=== PATIENT | female | born 1960 | race Caucasian/White ===

== ENCOUNTER → 2018-11-10 11:07 | Outpatient (CLI) | payer OTHER, SELFPAY ==
[2018-11-10 10:47] VITALS: BMI 25.3
[2018-11-10 12:47] LABS: T4 Free Direct 1.04 ng/dL (0.76-1.46); Thyroid Stim Hormone (TSH) 2.22 uIU/mL (0.358-3.74)
== END ==
PROVIDERS: PCP Family Medicine; Visit Provider Family Medicine
DX: E78.5 Hyperlipidemia, unspecified (principal)
CPT/HCPCS: 36415; 84439; 84443

== ENCOUNTER → 2018-11-30 13:29 | Outpatient (CLI) | payer OTHER, SELFPAY ==
[2018-11-10 10:47] VITALS: BMI 25.3
--- NOTE | 2018-11-30 13:47 | EKG12_ITS ---
Test Reason : CHEST TIGHTNESS Blood Pressure : / mmHG Vent. Rate : 064 BPM Atrial Rate : 064 BPM P-R Int : 136 ms QRS Dur : 072 ms QT Int : 430 ms P-R-T Axes : 062 -05 050 degrees QTc Int : 443 ms Normal sinus rhythm Septal infarct , age undetermined Abnormal ECG Confirmed by TESSA PERRIN ([id number]), editor farm journal JASWINDER MCLAUGHLIN ([id number]) on 12/01/2018 11:43:23 AM Referred By: Bernabe Lundberg Confirmed By:JULIO PERRIN
[2018-11-30 15:13] LABS: Absolute Neutrophil Count 4.6 X10^3/uL (2.0-7.7); Basophil# 0.03 X10^3/uL; Basophil% 0.4 % (0-1); Eosinophil# 0.11 X10^3/uL; Eosinophils% 1.5 % (0-5); Hematocrit 40.6 % (37-47); Hemoglobin 13.2 g/dl (12.0-15.0); Lymphocyte % 29.5 % (19-41); Mean Corp Hgb Conc 32.5 g/gl (32-36); Mean Corpuscular Hgb 29.5 pg (27.0-32.0); Mean Corpuscular Volume 90.6 fL (81-99); Mean Platelet Vol. 11.1 fl (6.2-12.0); Monocyte% 6.7 % (0-10); Neutrophil # 4.61 X10^3/uL (2.7-7.7); Neutrophil % 61.8 % (47-70); Platelet Count 223 K/mm3 (150-450); RBC Distribution Width CV 12.8 % (11.6-14.6); RBC Distribution Width SD 42.1 fl (35.1-43.9); Red Blood Count 4.48 M/mm3 (4.2-5.4); White Blood Count 7.5 K/mm3 (4.4-11.0)
[2018-11-30 15:19] LABS: POSITIVE COUNT NO; POSITIVE DIFFERENTIAL NO; POSITIVE MORPHOLOGY NO
[2018-11-30 15:30] LABS: Anion Gap 1 (5-15); BUN 9 mg/dL (7-18); BUN/Creat Ratio 10.5 RATIO (10-20); Calcium,Total 8.8 mg/dL (8.5-10.1); Chloride 106 mmol/L (98-107); Creatinine, Serum 0.86 mg/dL (0.55-1.02); EST Glomerular Filtration Rate 72 mL/min (>60); Est Glom Filt Rate - Afr Amer 87 mL/min (>60); Glucose 82 mg/dL (74-106); Potassium 3.8 mmol/L (3.5-5.1); Sodium Level 139 mmol/L (136-145)
== END ==
PROVIDERS: Family Provider Family Medicine; PCP Family Medicine; Referring Provider Family Medicine; Visit Provider Family Medicine
DX: R07.89 Other chest pain (principal)
CPT/HCPCS: 36415; 80048; 85025; 93005

== ENCOUNTER → 2018-12-20 13:22 | Outpatient (CLI) | payer SELFPAY ==
[2018-11-10 10:47] VITALS: BMI 25.3
--- NOTE | 2018-12-20 13:27 | CT_ITS ---
STUDY: CT CHEST WITHOUT CONTRAST REASON FOR EXAM: Female, 58 years old. Radiological over read study. RADIATION DOSAGE (If Supplied By Facility): CTDIvol = ( 12.19 ) mGy, DLP = ( 219.42 ) mGycm TECHNIQUE: Transaxial imaging was performed without the administration of intravenous contrast material. Individualized dose optimization techniques were used for this CT. COMPARISON: None. FINDINGS: Small bilateral axillary lymph nodes. Minimal increased linear markings at the lung bases suggestive of scarring. There is no demonstrated pleural abnormality. Normal heart and pericardium. There are multiple small lymph nodes within the mediastinum, which are normal in size and morphology most compatible with reactive lymph hyperplasia. Normal hilar regions. Normal unenhanced pulmonary arteries. Normal aorta arch and descending thoracic aorta. Normal osseous structures. Moderate sized hiatal hernia. 5 mm cyst in the anterior superior aspect of the right lobe of the liver. CT/Limited Chest CT w/CCTA IMPRESSION: No acute abnormality is seen. Electronically Signed: Yony Hidalgo, at 13:59 EDT , Service support ,
[2018-12-20 13:40] VITALS: BP 120/78; PULSE 57; RESP 16; O2SAT 96; BMI 25.2
--- NOTE | 2018-12-20 16:42 | CA.SCORE ---
Calcium Scoring Date of Study:: 12/20/18 Coronary Calcium Scoring: High-resolution Computed Tomographic imaging of the chest was performed on [12/20/2018], with particular attention paid to the coronary arteries. Images from the examination were analyzed for the presence and extent of coronary artery calcification , using coronary calcium quantification software. The patient tolerated the procedure well and there were no complications. The results of the coronary calcification analysis are provided below. - Findings Left Main (LM): 0 Left Anterior Descending (LAD): 0 Left Circumflex (LCX): 0 Right Coronary Artery (RCA): 0 Total Agatston Score: 0 Percentile Rankin - Conclusion Calcium Scoring Interpretation: Calcium Score Interpretation 0 No identifiable atherosclerotic plaque. Very low cardiovascular disease risk. <5% chance of presence coronary artery disease A Negative Examination 1-10 Minimal Plaque burden. Significant coronary artery disease very unlikely. 11-100 Mild plaque burden. Likely mild or minimal coronary atherosclerosis. 101-400 Moderate plaque burden Moderate non-obstructive coronary artery disease highly likely. Over 400 Extensive plaque burden. High likelihood of at least one significant coronary stenosis (>50% diameter) Calcium Score: 0 Negative Examination - No significant atherosclerotic plaquing noted. For evaluation of cardiac risk should include an assessment of all conventional risk factors and the scores and percentile rankings reported herein should be evaluated in this context.
== END ==
PROVIDERS: Family Provider Family Medicine; PCP Family Medicine; Referring Provider Family Medicine; Visit Provider Family Medicine
DX: R07.89 Other chest pain (principal)
CPT/HCPCS: 75571; 76380

== ENCOUNTER → 2019-03-22 14:06 | Outpatient (CLI) | payer OTHER, SELFPAY ==
[2019-03-22 13:31] VITALS: BMI 25.4
--- NOTE | 2019-03-22 14:08 | RAD_ITS ---
STUDY: X-RAY CHEST REASON FOR EXAM: Female, 58 years old. Cough TECHNIQUE: Frontal and lateral views of the chest COMPARISON: None. FINDINGS: The lungs are clear. There are no pleural effusions. There is no pneumothorax. The heart is normal in size. The visualized osseous structures are within normal limits. RAD/Chest PA and Lateral IMPRESSION: No acute thoracic pathology. Electronically Signed: Tyler Perdomo, at 19:36 EDT Tel , Service support ,
== END ==
PROVIDERS: Family Provider Family Medicine; PCP Family Medicine; Referring Provider Family Medicine; Visit Provider Family Medicine
DX: R05 Cough (principal)
CPT/HCPCS: 71046

== ENCOUNTER → 2019-11-22 11:02 | Outpatient (CLI) | payer OTHER, SELFPAY ==
[2019-10-31 09:23] VITALS: BMI 25.4
[2019-11-22 13:09] LABS: Cholesterol 236 mg/dL (200); High Density Lipoprotein 46 mg/dL; Triglycerides 144 mg/dL; Very Low Density Lipoprotein 29 mg/dL (5-40)
== END ==
PROVIDERS: PCP Family Medicine; Referring Provider Family Medicine; Visit Provider Family Medicine
DX: E78.5 Hyperlipidemia, unspecified (principal)
CPT/HCPCS: 36415; 80061

== ENCOUNTER → 2020-08-14 14:59 | Outpatient (CLI) | payer OTHER, SELFPAY ==
[2020-08-14 14:33] VITALS: BMI 25.7
[2020-08-14 17:04] LABS: ALB/GLOB Ratio 1.2 RATIO (0.9-2.4); AST(SGOT) 28 U/L (15-37); Alanine Aminotransfer ALT/SGPT 33 U/L (13-56); Albumin, Serum 4.3 g/dL (3.2-5.0); Alkaline Phosphatase 64 U/L (45-117); Anion Gap 5 (5-15); BUN 10 mg/dL (7-18); BUN/Creat Ratio 10.8 RATIO (10-20); Chloride 104 mmol/L (98-107); Cholesterol 177 mg/dL (200); Creatinine, Serum 0.93 mg/dL (0.55-1.02); EST Glomerular Filtration Rate 66 mL/min (>60); Est Glom Filt Rate - Afr Amer 79 mL/min (>60); Globulin 3.6 g/dL (2.2-4.2); Glucose 83 mg/dL (74-106); High Density Lipoprotein 63 mg/dL; Potassium 3.7 mmol/L (3.5-5.1); Protein, Total 7.9 g/dL (6.4-8.2); Sodium Level 139 mmol/L (136-145); Triglycerides 136 mg/dL; Very Low Density Lipoprotein 27 mg/dL (5-40)
== END ==
PROVIDERS: PCP Family Medicine; Referring Provider Family Medicine; Visit Provider Family Medicine
DX: E78.5 Hyperlipidemia, unspecified (principal)
CPT/HCPCS: 36415; 80053; 80061

== ENCOUNTER → 2020-10-16 12:02 | Outpatient (CLI) | payer OTHER, SELFPAY ==
[2020-10-16 10:37] VITALS: BMI 25.7
--- NOTE | 2020-10-16 12:07 | RAD_ITS ---
STUDY: X-RAY - RIGHT FOOT CLINICAL: Dorsal foot pain radiating into leg, injury 2 years ago. TECHNIQUE: 3 view(s) of the foot. COMPARISON: None. FINDINGS: Normal talus, calcaneus, and tarsal bones. There is a type II accessory navicular. Normal visualized subtalar, talonavicular, calcaneocuboid, tarsal and tarsometatarsal articulations. There is mild deformity at the base of the fifth metatarsal, possibly from remote healed fracture. Normal metatarsophalangeal joint of the great toe. Normal tibial and fibular sesamoid bones. Normal interphalangeal joint of the great toe. Normal phalanges of the great toe. Normal second through fifth metatarsophalangeal joints. Normal interphalangeal joints and phalanges of the lesser toes. The soft tissue structures are unremarkable. RAD/Foot min 3 Views IMPRESSION: Mild deformity of the base of the fifth metatarsal, possibly from remote healed fracture. Otherwise, unremarkable x-ray examination of the right foot. Electronically Signed: Bryn Prince MD at 14:47 EDT Tel , Service support ,
== END ==
PROVIDERS: PCP Family Medicine; Referring Provider Nurse Practitioner Family; Visit Provider Nurse Practitioner Family
DX: M79.671 Pain in right foot (principal)
CPT/HCPCS: 73630

== ENCOUNTER 2021-08-28 14:05 | Outpatient (CLI) | payer OTHER, SELFPAY ==
[2021-08-28 15:20] LABS: ALB/GLOB Ratio 1.4 RATIO (0.9-2.4); AST(SGOT) 29 U/L (15-37); Alanine Aminotransfer ALT/SGPT 31 U/L (13-56); Albumin, Serum 4.4 g/dL (3.2-5.0); Alkaline Phosphatase 50 U/L (45-117); Anion Gap 4 (5-15); BUN 12 mg/dL (7-18); BUN/Creat Ratio 12.9 RATIO (10-20); Calcium,Total 9.2 mg/dL (8.5-10.1); Chloride 105 mmol/L (98-107); Cholesterol 202 mg/dL (200); Creatinine, Serum 0.93 mg/dL (0.55-1.02); EST Glomerular Filtration Rate 65 mL/min (>60); Est Glom Filt Rate - Afr Amer 79 mL/min (>60); Globulin 3.2 g/dL (2.2-4.2); Glucose 92 mg/dL (74-106); High Density Lipoprotein 64 mg/dL; Protein, Total 7.6 g/dL (6.4-8.2); Sodium Level 139 mmol/L (136-145); Triglycerides 112 mg/dL; Very Low Density Lipoprotein 22 mg/dL (5-40)
== END 2021-08-28 23:59 | disposition home or self-care (01) ==
LOC: BIMLAB 14:06
PROVIDERS: PCP Family Medicine; Referring Provider Family Medicine; Visit Provider Family Medicine
DX: E78.5 Hyperlipidemia, unspecified (principal)
CPT/HCPCS: 36415; 80053; 80061

== ENCOUNTER → 2021-12-12 | Outpatient (CLI) | payer OTHER, SELFPAY ==
--- NOTE | 2021-12-12 11:57 | RAD_ITS ---
EXAM: XR CHEST, 2 VIEWS CLINICAL INDICATION: left chest pain, sob TECHNIQUE: Frontal and lateral views of the chest. This report was created using [employer] report generation technology. COMPARISON: 03/22/2019 FINDINGS: LUNGS AND PLEURAL SPACES: Unremarkable. No consolidation or edema. No pneumothorax. No effusion. HEART: Unremarkable. Cardiac silhouette not enlarged. MEDIASTINUM: There is a small hiatal hernia. BONES/JOINTS: Unremarkable. SOFT TISSUES: Unremarkable. RAD/Chest PA and Lateral IMPRESSION: No acute findings in the chest. Electronically Signed: Bryson Pierce MD at 3:08 EDT ,
[2021-12-12 12:34] LABS: Absolute Lymphocyte Count 1.77 X10^3/uL (0.83-4.51); Absolute Neutrophil Count 3.7 X10^3/uL (2.0-7.7); Basophil# 0.04 X10^3/uL; Basophil% 0.7 % (0-1); Eosinophil# 0.14 X10^3/uL; Eosinophils% 2.3 % (0-5); Hematocrit 40.6 % (37-47); Hemoglobin 13.1 g/dL (12.0-15.0); Lymphocyte # 1.77 X10^3/ul (0.83-4.51); Mean Corp Hgb Conc 32.3 g/dL (32-36); Mean Corpuscular Hgb 29.9 pg (27.0-32.0); Mean Corpuscular Volume 92.7 fL (81-99); Mean Platelet Vol. 11.1 fl (6.2-12.0); Monocyte% 8.2 % (0-10); NRBC Flagged by Analyzer 0 % (0-5); Neutrophil # 3.65 X10^3/uL (2.7-7.7); Neutrophil % 59.6 % (47-70); Platelet Count 199 K/mm3 (150-450); RBC Distribution Width CV 12.2 % (11.6-14.6); RBC Distribution Width SD 41.6 fl (35.1-43.9); Red Blood Count 4.38 M/mm3 (4.2-5.4); White Blood Count 6.1 K/mm3 (4.4-11.0)
[2021-12-12 12:47] LABS: Troponin-I HS 20 pg/mL (3.0-54.0)
== END | disposition home or self-care (01) ==
PROVIDERS: PCP Family Medicine; Referring Provider Physician Assistant; Visit Provider Physician Assistant
DX: R06.02 Shortness of breath (principal); R07.9 Chest pain, unspecified
CPT/HCPCS: 36415; 71046; 84484; 85025

== ENCOUNTER → 2022-03-31 | Outpatient (CLI) | payer OTHER, SELFPAY ==
--- NOTE | 2022-03-31 13:58 | US_ITS ---
STUDY: ULTRASOUND BREAST - RIGHT REASON FOR EXAM: Female, 61 years old. Abnormal ultrasound findings from outside examination. TECHNIQUE: Axial and longitudinal images of the RIGHT breast were performed with a high resolution ultrasound transducer. # OF IMAGES: 21 COMPARISON: Comparison is made with prior examination of 09/19/2021. FINDINGS: RIGHT Breast: There is a 4.8 mm x 5.4 mm x 3 mm cyst at the 7 o''clock position breast at 3 cm from the nipple. IMPRESSION: 4.8 mm x 5.4 mm x 3 mm cyst at the 7 o''clock position of the breast at 3 cm from the nipple. Septations are seen within it. A repeat sonogram in 6 months is recommended. ASSESSMENT CATEGORY: BIRADS Category 3: Probably Benign - Short-Interval Follow-up Suggested. A letter regarding these results will be sent to the patient by the facility within 30 days. Electronically Signed: Yony Hidalgo MD at 13:24 EDT , STUDY: ULTRASOUND BREAST - LEFT REASON FOR EXAM: Female, 61 years old. Follow-up for abnormal sonogram. TECHNIQUE: Axial and longitudinal images of the LEFT breast were performed with a high resolution ultrasound transducer. # OF IMAGES: 21 COMPARISON: Comparison is made with prior outside ultrasound examination dated 09/19/2021. FINDINGS: LEFT Breast: There is a 3.8 mm x 3.1 mm x 2.7 mm cyst at the 3 o''clock position of the breast at 1 cm from the nipple. US/Breast Limited Unilateral IMPRESSION: Stable examination. ASSESSMENT CATEGORY: BIRADS Category 2: Benign. A letter regarding these results will be sent to the patient by the facility within 30 days. Electronically Signed: Yony Hidalgo MD at 13:29 EDT ,
== END | disposition home or self-care (01) ==
PROVIDERS: PCP Family Medicine; Visit Provider Family Medicine
DX: N60.09 Solitary cyst of unspecified breast (principal)
CPT/HCPCS: 76642

== ENCOUNTER → 2022-08-20 | Outpatient (CLI) | payer OTHER, SELFPAY ==
[2022-08-20 17:34] LABS: Anion Gap 4 (5-15); BUN 19 mg/dL (7-18); BUN/Creat Ratio 21.3 RATIO (10-20); Calcium,Total 9.1 mg/dL (8.5-10.1); Chloride 106 mmol/L (98-107); Cholesterol 175 mg/dL (200); Creatinine, Serum 0.89 mg/dL (0.55-1.02); EST Glomerular Filtration Rate 68 mL/min (>60); Est Glom Filt Rate - Afr Amer 82 mL/min (>60); Glucose 96 mg/dL (74-106); High Density Lipoprotein 54 mg/dL; Potassium 4.1 mmol/L (3.5-5.1); Sodium Level 142 mmol/L (136-145); Triglycerides 202 mg/dL; Very Low Density Lipoprotein 40 mg/dL (5-40)
== END | disposition home or self-care (01) ==
LOC: BIMLAB 16:08
PROVIDERS: PCP Family Medicine; Referring Provider Family Medicine; Visit Provider Family Medicine
DX: R05.3 Chronic cough (principal); E78.5 Hyperlipidemia, unspecified
CPT/HCPCS: 36415; 80048; 80061

== ENCOUNTER → 2023-07-20 | Outpatient (CLI) | payer OTHER, SELFPAY ==
--- NOTE | 2023-07-20 14:45 | RAD_ITS ---
EXAM: XR CHEST, 2 VIEWS CLINICAL INDICATION: left sided chest pain TECHNIQUE: Frontal and lateral views of the chest. COMPARISON: 12/12/2021 FINDINGS: LUNGS AND PLEURAL SPACES: Unremarkable. No consolidation or edema. No pneumothorax. No effusion. HEART: Unremarkable. Cardiac silhouette not enlarged. MEDIASTINUM: Small hiatal hernia is present. BONES/JOINTS: Unremarkable. No acute fracture. SOFT TISSUES: Unremarkable. RAD/Chest PA and Lateral IMPRESSION: No acute findings in the chest. Electronically Signed: Bryson Pierce MD at 19:18 EST ,
--- OUTSIDE RECORDS SUMMARY | 2023-07-20 15:18 | XMS RPT_ITS | CCD ---
Author Name Unknown Address [address] [facility] [address] [place] [address] Organization [facility] Care Team Providers Care Release Specialist Name Role Phone Unavailable Primary Care Provider ESSIE Hayward Attending Unavailable MOLLY MENDOZA Attending Unavailable Allergies Allergy Classification Reported Allergen(s) Allergy Type Date of Onset Reaction(s) Facility (1 source) Aspirin; Translations: [ASPIRIN] Drug Allergy 08-24-2018 [facility] Repository (1 source) Pravastatin; Translations: [PRAVASTATIN] Drug Allergy 04-30-2023 [facility] Repository Medications Completed/Discontinued Medications Medication Drug Class(es) Dates Sig (Normalized) Sig (Original) methylPREDNISolone 4 mg oral tablet (1 source) Corticosteroid Start: 3 methylPREDNISolone (MEDROL, FAIZA,) 4 mg Dose-Pack Indications: Plant dermatitis Take by mouth per package instructions 21 tablet 0 02/23/2023 Active Problems Problem Classification Problem Date Documented Da te Episodic/Chronic Allergic reactions (2 sources) Contact dermatitis due to plants; Translations: [Unspecified contact dermatitis due to plants, except food] Onset: 02-23-2023 02-23-2023 Episodic Chronic obstructive pulmonary disease and bronchiectasis (1 source) Bronchitis, not specified as acute or chronic; Translations: [Bronchitis] Onset: 04-30-2023 Episodic Results Test Name Value Interpretation Reference Range Facil ity Vital Signs Date Time Vital Sign Value Performing Clinician Gloriai lithao 02-23-2023 10:56-0400 Body temperature 98.29 [degF] Essie Ricci MD Work Phone: [facility] 02-23-2023 10:56-0400 Body weight 70.76 kg Essie Ricci MD Work Phone: [facility] 02-23-2023 10:56-0400 Diastolic blood pressure 70 mm[Hg] Essie Ricci MD Work Phone: [facility] 02-23-2023 10:56-0400 Heart rate 65 /min Essie Ricci MD Work Phone: [facility] 02-23-2023 10:56-0400 Respiratory rate 16 /min Essie Ricci MD Work Phone: [facility] 02-23-2023 10:56-0400 SaO2% (BldA) [Mass fraction] 98 % Essie Ricci MD Work Phone: [facility] 02-23-2023 10:56-0400 Systolic blood pressure 148 mm[Hg] Essie Ricci MD Work Phone: [facility] Encounters Encounter Date Encounter Type Care Provider Facility Start: 04-30-2023 End: 04-30-2023 ambulatory MOLLY MENDOZA Facility:[id number] Start: 02-23-2023 End: 02-23-2023 ambulatory ESSIE RICCI Facility:[id number] Start: 02-23-2023 End: 02-23-2023 Office outpatient new 30 minutes Essie Ricci MD Work Phone: [facility] [place] Procedures Date Procedure Procedure Detail Performing Clinician Start: 09-17-2021 Mammography Essie diane MD Work Phone: Plan of Treatment Date Care Activity Detail Author Start: 04-28-2024 LIPID SCREEN LIPID SCREEN [facility] Start: 02-19-2023 Influenza vaccination INFLUENZA (#1) [facility] Start: 09-17-2022 Mammography MAMMOGRAM [facility] Start: 06-21-2022 DEPRESSION ASSESSMENT DEPRESSION ASS ESSMENT [facility] Start: 04-28-2022 DIABETES SCREEN DIABETES SCREEN [facility] Start: 2010 SHINGRIX VACCINE (1 of 2) SHINGRIX V ACCINE (1 of 2) [facility] Start: 2005 COLOGUARD (FIT-DNA) COLOGUARD (FIT-D NA) [facility] Start: 2005 Colonoscopy COLONOSCOPY [facility] Start: 2005 COLORECTAL CANCER SCREENING COLORECTAL CANCER SCREENING [facility] Start: [address] COLONOGRAPHY [facility] Start: 2005 FECAL OCCULT BLOOD FECAL OCCULT BLOO D [facility] Start: 2005 SIGMOIDOSCOPY SIGMOIDOSCOPY [facility] Start: 1990 HPV TESTING HPV TESTING [facility] Start: 1981 PAP TESTING PAP TESTING [facility] Start: 1979 Urine microalbumin profile DTAP,TDAP ,TD (1 - Tdap) [facility] Start: 1978 HEPATITIS C SCREENING HEPATITIS C SC REENING [facility] Start: 1978 HIV SCREENING HIV SCREENING [facility] Start: 02-07-1961 COVID-19 VACCINE (#1) COVID-19 VACCI NE (#1) [facility] Payers Date Payer Category Payer Private Health Insurance [employer] PPO [id number] 2022-Present [phone] [address] [place] [address] PPO [id number] 2022 Private Health Insurance [id number] Social History Date Type Detail Facility Tobacco smoking stat [facility] Tobacco smoking consumption unknown [facility] Start: 1960 Sex Assigned At Not on file [facility] Start: 02[facility]23-2023 [facility] Start: 02-23-2023 Tobacco use and exposure Smokeless t obacco non-user [facility] Start: 02-23-2023 History of Social function [facility] Start: 02-23-2023 Tobacco use panel [facility] Progress note 04-30-2023 Note Date & Type Note Facility 04-30-2023 Note HNO ID: [id number] Author: Molly Mendoza, DO Service: ? Author Type: Physician Type: Progress Notes Filed: 04/30/2023 12:25 PM Note Text: Juju Chapman is a 62 year old FEMALE who presents with Cough (Started about a week ago //Hx of bronchitis /) and GI Upset (Due to taking cough relief medication /) HPI History reviewed. No pertinent past medical history. There is no problem list on file for this patient. Current Outpatient Medications Medication Sig Dispense Refill rosuvastatin (CRESTOR) 5 mg tablet Take 5 mg by mouth daily at bedtime. amoxicillin (AMOXIL) 875 mg tablet Take 1 tablet by mouth two times a day for 10 days. 20 tablet 0 wfznvqfqqrklz-LE-nkurzisuanopo 4-30-650 mg/30 mL liqd Take 1 teaspoonful by mouth three times a day as needed for up to 10 days. 150 mL 0 methylPREDNISolone (MEDROL, FAIZA,) 4 mg Dose-Pack Take by mouth per package instructions (Patient not taking: Reported on 04/30/2023) 21 tablet 0 triamcinolone acetonide (KENALOG) 0.1 % ointment Apply as directed to affected area twice daily. (Patient not taking: Reported on 04/30/2023) 80 g 0 No current facility-administered medications for this visit. Social History Tobacco Use Smoking status: Never Smokeless tobacco: Never Vaping Use Vaping Use: Never used Substance Use Topics Alcohol use: Never Drug use: Never Alcohol Use: Never Tobacco Use: Never History reviewed. No pertinent family history. Review of Systems Constitutional: Positive for chills, fever and malaise/fatigue. HENT: Positive for congestion, sinus pain and sore throat. Respiratory: Positive for cough and sputum production. All other systems reviewed and are negative. BP 147/88[patient has been taking cough relief medication[ Pulse 66 Temp (Src) 97.9 (Temporal) Resp 17 Wt 156 lb (70.8kg) SpO2 97% Physical Exam Vitals and nursing note reviewed. Constitutional: Appearance: Normal appearance. HENT: Head: Normocephalic and atraumatic. Nose: Congestion and rhinorrhea present. Mouth/Throat: Pharynx: Posterior oropharyngeal erythema present. Eyes: Extraocular Movements: Extraocular movements intact. Pupils: Pupils are equal, round, and reactive to light. Cardiovascular: Rate and Rhythm: Normal rate and regular rhythm. Heart sounds: Normal heart sounds. Pulmonary: Effort: Pulmonary effort is normal. Breath sounds: Normal breath sounds. Abdominal: General: Bowel sounds are normal. Musculoskeletal: General: Normal range of motion. Cervical back: Normal range of motion. Skin: General: Skin is warm. Capillary Refill: Capillary refill takes 2 to 3 seconds. Neurological: General: No focal deficit present. Psychiatric: Mood and Affect: Mood normal. ASSESSMENT/PLAN: 1. Bronchitis - ICD9: 490, ICD10: J40 - AMOXICILLIN 875 MG TABLET - CHLORPHENIRAMINE 4 MG-DM 30 MG-ACETAMINOPHEN 650 MG/30 ML ORAL LIQUID Molly D [facility] Progress note 02-23-2023 Note Date & Type Note Facility 02-23-2023 Note HNO ID: [id number] Author: Essie Ricci MD Service: ? 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 Rash History reviewed. No pertinent past medical history. There is no problem list on file for this patient. Current Outpatient Medications Medication Sig Dispense Refill rosuvastatin (CRESTOR) 5 mg tablet Take 5 mg by mouth daily at bedtime. No current facility-administered medications for this visit. Social History Tobacco Use Smoking status: Never Smokeless tobacco: Never Alcohol Use: Not on file Tobacco Use: Never History reviewed. No pertinent family history. Review of Systems Constitutional: Negative. Respiratory: Negative. Skin: Positive for rash. BP 148/70 Pulse 65 Temp 98.3 Resp 16 Wt 156 lb (70.8kg) SpO2 98% Physical Exam Vitals reviewed. Constitutional: General: She is not in acute distress. Appearance: She is not ill-appearing or toxic-appearing. HENT: Nose: Nose normal. Mouth/Throat: Mouth: Mucous membranes are moist. Pharynx: Oropharynx is clear. Cardiovascular: Rate and Rhythm: Normal rate and regular rhythm. Heart sounds: Normal heart sounds. Pulmonary: Effort: Pulmonary effort is normal. Breath sounds: Normal breath sounds. Musculoskeletal: Cervical back: Normal range of motion and neck supple. Skin: Findings: Erythema and rash present. Comments: Scattered erythematous rash on extremities and trunk some areas of eczema-like rash. No blisters or pustules Neurological: Mental Status: She is alert. Explained to patient that this is most likely from something she has been exposed to while working on a fence. I explained to patient that [facility] has ran out of the cortisone injections so I cannot give her injection here today but I will prescribe her Medrol Dosepak and also steroid ointment to put on her rash. Patient understand and agreed ASSESSMENT/PLAN: 1. Plant dermatitis - ICD9: 692.6, ICD10: L25.5 - METHYLPREDNISOLONE 4 MG TABLETS IN A DOSE PACK - TRIAMCINOLONE ACETONIDE 0.1 % TOPICAL OINTMENT Benadryl, use steroid ointment as per direction F/u PCP for further urgent care Explained details Essie Ricci MD [facility] Instructions 02-23-2023 Patient Instructions Note Date & Type Note Facility 02-23-2023 Instructions Essie Ricci MD - 02/23/2023 11:13 AM EDT Benadryl, use steroid ointment as per direction F/u PCP for further urgent care Explained details documented in this encounter [facility] History of Present illness Narrative 02-23-2023 Essie Ricci MD - 02/23/2023 11:06 AM EDT Note Date & Type Note Facility 02-23-2023 History of Presen t illness Narrative Juju Chapman is a 62 year old FEMALE who presents with Rash (Red itchy rash scattered over body and face 3 day) 62 years old female present with rash over the body with itching for the last 3 days Stated that she was doing fencing at home has been exposed to poison oak most likely Itching has been persistent, she had similar symptoms in the past No respiratory symptoms. Rash History reviewed. No pertinent past medical history. There is no problem list on file for this patient. Current Outpatient Medications Medication Sig Dispense Refill rosuvastatin (CRESTOR) 5 mg tablet Take 5 mg by mouth daily at bedtime. No current facility-administered medications for this visit. Social History Tobacco Use Smoking status: Never Smokeless tobacco: Never Alcohol Use: Not on file Tobacco Use: Never History reviewed. No pertinent family history. Review of Systems Constitutional: Negative. Respiratory: Negative. Skin: Positive for rash. BP 148/70 Pulse 65 Temp 98.3 Resp 16 Wt 156 lb (70.8kg) SpO2 98% Physical Exam Vitals reviewed. Constitutional: General: She is not in acute distress. Appearance: She is not ill-appearing or toxic-appearing. HENT: Nose: Nose normal. Mouth/Throat: Mouth: Mucous membranes are moist. Pharynx: Oropharynx is clear. Cardiovascular: Rate and Rhythm: Normal rate and regular rhythm. Heart sounds: Normal heart sounds. Pulmonary: Effort: Pulmonary effort is normal. Breath sounds: Normal breath sounds. Musculoskeletal: Cervical back: Normal range of motion and neck supple. Skin: Findings: Erythema and rash present. Comments: Scattered erythematous rash on extremities and trunk some areas of eczema-like rash. No blisters or pustules Neurological: Mental Status: She is alert. Explained to patient that this is most likely from something she has been exposed to while working on a fence. I explained to patient that [facility] has ran out of the cortisone injections so I cannot give her injection here today but I will prescribe her Medrol Dosepak and also steroid ointment to put on her rash. Patient understand and agreed ASSESSMENT/PLAN: 1. Plant dermatitis - ICD9: 692.6, ICD10: L25.5 - METHYLPREDNISOLONE 4 MG TABLETS IN A DOSE PACK - TRIAMCINOLONE ACETONIDE 0.1 % TOPICAL OINTMENT Benadryl, use steroid ointment as per direction F/u PCP for further urgent care Explained details Essie Ricci MD documented in this encounter [facility] Evaluation note Note Date & Type Note Facility documented in this encounter [facility] Summary Purpose Family History No Family History Records FoundNo Family History Records FoundNo Family History Records FoundNo Family History Records Found Advance Directives No Advanced Directives Records FoundNo Advanced Directives Records FoundNo Advanced Directives Records FoundNo Advanced Directives Records Found Additional Source Comments INFORMATION SOURCE (unrecogn ized section and content) DATE CREATED AUTHOR AUTHOR'S ORGANIZ ATROCHELLE 11/30/2019 [facility] ([place]) DATE CREATED AUTHOR AUTHOR'S ORGANIZ ATION 10/02/2021 [facility] [place] DATE CREATED AUTHOR AUTHOR'S ORGANIZ ATION 05/02/2023 [facility] Source Comments (unrecognize d section and content) In the event this informatio n is protected by the Federal Confidentiality of Alcohol and Drug Abuse Patient Records regulations: The Federal rules restrict any use of the information to criminally investigate or prosecute any alcohol or drug abuse patient.[facility] the event this information is protected by the Federal Confidentiality of Alcohol and Drug Abuse Patient Records regulations: The Federal rules restrict any use of the information to criminally investigate or prosecute any alcohol or drug abuse patient.[facility] the event this information is protected by the Federal Confidentiality of Alcohol and Drug Abuse Patient Records regulations: The Federal rules restrict any use of the information to criminally investigate or prosecute any alcohol or drug abuse patient.[facility] Reason for Visit (unrecogniz ed section and content) FOR RECORDS PERTAINING TO PATIENTS WHO ARE OR HAVE BEEN ENROLLED IN A CHEMICAL DEPENDENCY/SUBSTANCEABUSE PROGRAM, SOME INFORMATION MAY BE OMITTED. This clinical summary was aggregated from multiple sources. Caution should be exercised in using it in the provision of clinical care. This summary normalizes information from multiple sources, and as a consequence, information in this document may materially change the coding, format and clinical context of patient data. In addition, data may be omitted in some cases. CLINICAL DECISIONS SHOULD BE BASED ON THE PRIMARY CLINICAL RECORDS. [facility] [employer] [facility]. provides no warranty or guarantee of the accuracy or completeness of information in this document.
== END | disposition home or self-care (01) ==
PROVIDERS: PCP Family Medicine; Referring Provider Family Medicine; Visit Provider Family Medicine
DX: R07.89 Other chest pain (principal); R05.9 Cough, unspecified
CPT/HCPCS: 71046

== ENCOUNTER → 2023-09-23 | Outpatient (CLI) | payer OTHER, SELFPAY ==
--- NOTE | 2023-09-23 14:13 | BD_ITS ---
STUDY: DUAL ENERGY X-RAY ABSORPTIOMETRY / DXA REASON FOR EXAM: Female, 63 years old. Upper back pain TECHNIQUE: Bone Mineral Density (BMD) measurements of lumbar spine and bilateral hips were obtained. COMPARISON: None. FINDINGS: Lumbar Spine (L1-L4): g/cm2 (0.625) / T-score (-4.1) / Z-score (-2.4) Findings are suggestive of osteoporosis with a high fracture risk. Left Femur Total: g/cm2 (0.712) / T-score (-1.9) / Z-score (-0.8) Left Femoral Neck: g/cm2 (0.638) / T-score (-1.9) / Z-score (-0.5) Right Femur Total: g/cm2 (0.636) / T-score (-2.5) / Z-score (-1.4) Right Femoral Neck: g/cm2 (0.605) / T-score (-2.2) / Z-score (-0.8) BD/Dexa Bone Density Study IMPRESSION: The patient is considered osteoporotic as outlined below according to World Edgar Organization (WHO) criteria with a high fracture risk. Reference Information: The T-score is the number of standard deviations above or below the standard which is normal for young adults at their peak bone mineral density. The World Health Organization (WHO) interprets the T-scores as follows: Above -1 Normal bone density Between -1 and -2.5 Osteopenia Equal to / or below -2.5 Osteoporosis As a practical clinical guideline, osteopenia may be graded as follows: Mild -1 through -1.5 Moderate -1.6 through -2.0 Severe -2.1 through -2.4 The Z-score is the number of standard deviations above or below age-matched controls. A Z-score of less than -1.5 would be considered abnormal. References: 1. NIH Osteoporosis and Related Bone Diseases www osteo.org 2. International Society for Clinical Densitometry www iscd.org 3. National Osteoporosis Foundation www nof.org Electronically Signed: Yony Hidalgo MD at 13:54 EDT ,
--- NOTE | 2023-09-23 14:43 | RAD_ITS ---
STUDY: X-RAY - THORACIC SPINE REASON FOR EXAM: Female, 63 years old. back pain TECHNIQUE: 3 view(s) of the thoracic spine were obtained. COMPARISON: None. FINDINGS: There is an increase in the normal thoracic kyphosis. There is no substantial scoliosis. There is mild multilevel endplate spondylosis of the thoracic vertebrae. There is multilevel disc space narrowing of the thoracic spine. The soft tissue structures are unremarkable. RAD/Thoracic Spine 2 Views IMPRESSION: Degenerative changes. No acute abnormality seen. Electronically Signed: Chau Orellana MD at 17:16 EDT ,
== END | disposition home or self-care (01) ==
PROVIDERS: PCP Family Medicine; Referring Provider Family Medicine; Visit Provider Family Medicine
DX: M54.9 Dorsalgia, unspecified (principal)
CPT/HCPCS: 72070; 77080

== ENCOUNTER → 2024-10-24 | Outpatient (CLI) | payer OTHER, SELFPAY ==
[2024-10-24 15:56] LABS: ALB/GLOB Ratio 1.7 RATIO (0.9-2.4); AST(SGOT) 32 U/L (<=31); Alanine Aminotransfer ALT/SGPT 23 U/L (<=34); Albumin, Serum 4.6 g/dL (3.4-4.8); Alkaline Phosphatase 56 U/L (35-104); Anion Gap 9 (5-15); BUN 19 mg/dL (4-19); BUN/Creat Ratio 21.4 RATIO (10-20); Calcium,Total 9.7 mg/dL (7.6-11.0); Carbon Dioxide 27.8 mmol/L (21.0-32.0); Chloride 103 mmol/L (98-108); Cholesterol 191 mg/dL (<=200); EST Glomerular Filtration Rate 72 (>60); Globulin 2.8 g/dL (2.2-4.2); Glucose 94 mg/dL (70-99); High Density Lipoprotein 55 mg/dL; Low Density Lipoprotein Calc. 106 mg/dL; Potassium 4.7 mmol/L (3.3-5.1); Protein, Total 7.4 g/dL (5.9-8.4); Sodium Level 140 mmol/L (133-145); Total Bilirubin 0.58 mg/dL (0.00-1.30); Triglycerides 151 mg/dL; Very Low Density Lipoprotein 30 mg/dL (5-40); cholesterol:hdl ratio screen 3.47
== END | disposition home or self-care (01) ==
LOC: BIMLAB 13:53
PROVIDERS: PCP Family Medicine; Visit Provider Family Medicine
DX: E78.5 Hyperlipidemia, unspecified (principal)
CPT/HCPCS: 36415; 80053; 80061